=== PATIENT | female | born 1980 | race Two or more races ===

== ENCOUNTER → 2017-01-08 | Day surgery (SDC) | payer OTHER ==
[~2017-01-08] VITALS: Ht 154.9 cm; Wt 74.3 kg
[~2017-01-08] MED LIST: *MEPERIDINE 25 MG INJ VIAL PERIprocedural Use ONLY ONE; *ONDANSETRON 4 MG VIAL PERIprocedural Use ONLY ONE; *morphine SULFATE 8 MG/ML PERIprocedure ONLY ONE; ACETAMINOPHEN 1000 MG/100 ML 100 ML IV ONE; BUPIVACAINE/EPINEPHRINE 0.25% PF 30 ML VIAL ONE; CHLORHEXIDINE GLUCONATE 2 % 1 PACK (2 CLOTHS) TOPICAL PRN; DO NOT ADM ANY ANTICOAGULANT DRUGS PRN; LACTATED RINGER'S 1000 ML IV PRN; LEVO112T2 PO; METOPROLOL TARTRATE 25 MG TAB PO PRN; POVIDONE IODINE 5% (ANTISEPSIS KIT) 4 APPLICATIONS EACH NARE PRN; SODIUM CHLORID 0.9% 500 ML IV PRN; TYLE325T PO; ceFAZolin 1,000 MG/NS 100 ML IV SCH; oxyCODONE/ACETAMINOPHEN 5 MG/325 MG TAB PO PRN
--- NOTE | 2017-01-08 11:00 | PD.OP ---
Operative Report Date of Surgery: Jan 08, 2017 Preoperative Diagnosis: (1) Encounter for female sterilization procedure Postoperative Diagnosis: (1) Encounter for female sterilization procedure Procedure: 1. lysis of adhesions 2. tubal ligation (right side only) Anesthesia: STEVE Surgeon: Mariam Vidal Sales Broker(s): OR staff Operation and Findings: IVF: 500 ml LR + IV antibiotics given prior to surgery UO: none EBL: < 10 ml Findings: pelvic adhesions, left fallopian tube is surgically absent; normal ovaries, fibroids Specimens: none Complications: none Condition: stable Disposition: PACU Description of the procedure: The risks, benefits and alternatives of the procedure were discussed with patient. She wishes to proceed. Informed consent was obtained after questions were answered. The patient was then taken to the operating room with her IV running. She was placed in the supine position and was given general anesthesia without difficulties or complications. She was then placed in the dorsal lithotomy position and was prepped and draped in the usual sterile fashion. A bivalve speculum was placed inside the patient's vagina. The anterior and posterior aspects of the cervix were grasped with a single tooth tenaculum for manipulation. The rest of the instruments were removed from the patient's vagina.The surgeon changed gloves and attention was turned to the patient's abdomen. A vertical umbilical incision was made with the scalpel. A 5 mm trocar was carefully introduced inside the patient's abdomen. A pneumoperitoneum was created with CO2 gas. A survey of the patient's abdomen revealed normal anatomy. A survey of the patient's pelvis revealed the findings noted above. Two other 5 mm trocars were placed inside the lower right and left abdomen under direct visualization. Good hemostasis was noted. A Kleppinger was used to electrocauterize the right fallopian tube (about 1 inch section in the midline) . Scissors were used to cut the electrocauterized area. Excellent hemostasis was noted. The trocars were removed under direct visualization. Excellent hemostasis was noted. All instruments were removed from the patient's abdomen. The CO2 gas was carefully expressed out of the patient's abdomen. The umbilical fascial incision was closed with 0-Vicryl. The skin incisions were reapproximated with subcutaneous stitches using 4-0 Vicryl. Marcaine was injected in the skin incisions. Mastisol and steri strips were placed over the incisions. The patient tolerated the procedure well. She was successfully extubated and transferred to PACU in stable condition. Note: I discussed the surgical findings and procedures done with patient's mother. Her questions were answered, she verbalized understanding and agreement. Mariam Vidal MD Jan 08, 2017 11:00
[2017-01-08 14:14] LABS: BETA HCG QUANT LESS THAN 1 MIU/ML (0-5)
[2017-01-08 17:18] VITALS: BP 125/67; PULSE 77; RESP 16; TEMP 98.5; O2SAT 95
== END | disposition home or self-care (01) ==
LOC: HSDC 12:21
PROVIDERS: ATTEND Obstetrics & Gynecology
DX: Z30.2 Encounter for sterilization (principal); N73.6 Female pelvic peritoneal adhesions (postinfective); D25.9 Leiomyoma of uterus, unspecified
CPT/HCPCS: 00851; 58670; 84702; J0131; J0690; J2175; J2270; J2405; J7120